=== PATIENT | female | born 1960 | race Hispanic/Latino ===

== ENCOUNTER 2017-03-02 12:30 | Emergency (ER) | payer SELFPAY ==
[2017-03-02] MEDS ORDERED: DECADRON IV ONE (15:42)
[2017-03-02] MEDS ORDERED: NACL 0.9% 1000 ML 1,000 ML IV ONE (15:42)
--- NOTE | 2017-03-02 15:42 | Emergency Department Report ---
ED ENT HPI - General Chief complaint: Sore Throat Stated complaint: ABSCESS ON TONSILS Time Seen by Provider: 03/02/17 15:33 Source: patient Mode of arrival: Ambulatory Limitations: No Limitations - History of Present Illness Initial comments: 56-year-old female past medical history nephrectomy, kidney stones sent in from urgent care for complaint of possible peritonsillar abscess. On exam patient is awake alert and oriented 3 not in acute distress speaking in full sentences no trismus no drooling on exam. No audible wheezing or stridor. States she has developed sore throat for approximately 3 days. States she went to urgent care and was told she may have a peritonsillar abscess and was referred to the emergency room. Patient states that she had a rapid strep swab done in urgent care which was negative. Patient states she has had some body aches denies fevers or chills. States he is able to swallow liquids without difficulty but solids are painful. Denies any shortness of breath MD complaint: sore throat Onset/Timin -: days(s) Location: throat Severity: moderate Severity scale (0 -10): 6 Quality: aching Consistency: constant Worsens with: swallowing, eating Associated Symptoms: fever - Related Data Previous Rx's Medication Instructions Recorded Last Taken Type Benzocaine/Menthol [Cepacol Sore 1 each MM Q4H PRN #1 box 03/02/17 Unknown Rx Throat Lozenge] Clindamycin [Clindamycin CAP] 300 mg PO Q6H #28 capsule 03/02/17 Unknown Rx Ibuprofen [Motrin] 600 mg PO Q8H PRN #25 tablet 03/02/17 Unknown Rx Allergies Allergy/AdvReac Type Severity Reaction Status Date / Time acetaminophen [From Vicodin] Allergy Nausea Verified 03/02/17 12:36 ciprofloxacin [From Cipro] Allergy Rash Verified 03/02/17 12:36 ciprofloxacin HCl Allergy Rash Verified 03/02/17 12:36 [From Cipro] hydrocodone bitartrate Allergy Nausea Verified 03/02/17 12:36 [From Vicodin] ED Dental HPI - General Chief complaint: Sore Throat Stated complaint: ABSCESS ON TONSILS Time Seen by Provider: 03/02/17 15:33 Source: patient Mode of arrival: Ambulatory Limitations: No Limitations - Related Data Previous Rx's Medication Instructions Recorded Last Taken Type Benzocaine/Menthol [Cepacol Sore 1 each MM Q4H PRN #1 box 03/02/17 Unknown Rx Throat Lozenge] Clindamycin [Clindamycin CAP] 300 mg PO Q6H #28 capsule 03/02/17 Unknown Rx Ibuprofen [Motrin] 600 mg PO Q8H PRN #25 tablet 03/02/17 Unknown Rx Allergies Allergy/AdvReac Type Severity Reaction Status Date / Time acetaminophen [From Vicodin] Allergy Nausea Verified 03/02/17 12:36 ciprofloxacin [From Cipro] Allergy Rash Verified 03/02/17 12:36 ciprofloxacin HCl Allergy Rash Verified 03/02/17 12:36 [From Cipro] hydrocodone bitartrate Allergy Nausea Verified 03/02/17 12:36 [From Vicodin] ED Review of Systems ROS: Stated complaint: ABSCESS ON TONSILS Other details as noted in HPI Constitutional: malaise. denies: chills, fever Eyes: denies: eye pain, eye discharge, vision change ENT: throat pain. denies: ear pain Respiratory: denies: cough, shortness of breath, wheezing Cardiovascular: denies: chest pain, palpitations Endocrine: no symptoms reported Gastrointestinal: denies: abdominal pain, nausea, diarrhea Genitourinary: denies: urgency, dysuria, discharge Musculoskeletal: denies: back pain, joint swelling, arthralgia Skin: denies: rash, lesions Neurological: denies: headache, weakness, paresthesias Psychiatric: denies: anxiety, depression Hematological/Lymphatic: denies: easy bleeding, easy bruising ED Past Medical Hx - Past Medical History Previous Medical History?: Yes Hx Kidney Stones: Yes Additional medical history: Renal stones - Surgical History Past Surgical History?: Yes Additional Surgical History: Right nephrectomy - Social History Smoking Status: Never Smoker Substance Use Type: Alcohol, Prescribed - Medications Home Medications: Home Medications Medication Instructions Recorded Confirmed Last Taken Type Benzocaine/Menthol [Cepacol Sore 1 each MM Q4H PRN #1 box 03/02/17 Unknown Rx Throat Lozenge] Clindamycin [Clindamycin CAP] 300 mg PO Q6H #28 capsule 03/02/17 Unknown Rx Ibuprofen [Motrin] 600 mg PO Q8H PRN #25 tablet 03/02/17 Unknown Rx ED Physical Exam - General Limitations: No Limitations General appearance: alert, in no apparent distress - Head Head exam: Present: atraumatic, normocephalic - Eye Eye exam: Present: normal appearance, PERRL, EOMI - ENT ENT exam: Present: mucous membranes moist - Expanded ENT Exam Expanded Throat exam: Positive: tonsillar erythema, tonsillomegaly, tonsillar exudate ( there are tonsillar exudates worse in the left than the right uvula is midline and oropharynx is still open and patent) - Neck Neck exam: Present: normal inspection, full ROM, lymphadenopathy (there is cervical anterior lymphadenopathy worse on left and right) - Respiratory Respiratory exam: Present: normal lung sounds bilaterally. Absent: respiratory distress - Cardiovascular Cardiovascular Exam: Present: regular rate, normal rhythm. Absent: systolic murmur, diastolic murmur, rubs, gallop - GI/Abdominal GI/Abdominal exam: Present: soft, normal bowel sounds - Extremities Exam Extremities exam: Present: normal inspection, full ROM - Back Exam Back exam: Present: normal inspection - Neurological Exam Neurological exam: Present: alert, oriented X3 - Psychiatric Psychiatric exam: Present: normal affect, normal mood - Skin Skin exam: Present: warm, dry, intact, normal color. Absent: rash ED Course Vital Signs 03/02/17 03/02/17 12:37 17:57 Temperature 99.6 F 98.3 F Pulse Rate 94 H 88 Respiratory 18 18 Rate Blood Pressure 124/78 Blood Pressure 112/68 [Left] O2 Sat by Pulse 100 99 Oximetry ED Medical Decision Making - Lab Data Result diagrams: 03/02/17 15:44 03/02/17 15:44 - Medical Decision Making A/P: Tonsillitis, possible early peritonsillar abscess 1-Motrin when necessary, course of clindamycin 2-I discussed case with Dr. Smith will also examined patient. Dr. Smith and I presented the patient with the option of doing a CT now to rule out peritonsillar abscess as it is unclear if there is a fully formed abscess just on physical exam. Patient also presented with option of taking antibiotics and anti-inflammatories while performing watchful waiting to see if symptoms improve. Patient elected to try antibiotics and anti-inflammatories and to return to the ED if symptoms worsen 3-I advised patient to return to the ED if symptoms worsen. 4- I advised patient that it is important to follow up with ENT, patient provided with ENT referral information and I advised her to call to make appointments as soon as possible. Critical care attestation.: If time is entered above; I have spent that time in minutes in the direct care of this critically ill patient, excluding procedure time. ED Disposition Clinical Impression: Tonsillitis with exudate Disposition: TO HOME OR SELFCARE Is pt being admited?: No Does the pt Need Aspirin: No Condition: Stable Instructions: Peritonsillar Abscess (ED), Tonsillitis (ED) Additional Instructions: Patient advised to return to the ED within 48-72 hours if symptoms worsen if she experiences drooling trismus difficulty speaking or difficulty tolerating fluids. Patient advised to follow up with ENT Prescriptions: Benzocaine/Menthol [Cepacol Sore Throat Lozenge] 1 each MM Q4H PRN #1 box PRN Reason: Sore Throat Clindamycin [Clindamycin CAP] 300 mg PO Q6H #28 capsule Ibuprofen [Motrin] 600 mg PO Q8H PRN #25 tablet PRN Reason: Pain Referrals: [facility] [Provider Group] - 3[facility] - 3-5 Days [facility] [Outside] - 3-5 Days EMILY NAZARIO MD [Staff Physician] - 3-5 Days Forms: Work/School Release Form(ED)
[2017-03-02 16:01] LABS: Basophils % (Auto) 0.3 % (0.0-1.8); Eosinophils % (Auto) 0.3 % (0.0-4.3); Hemoglobin 14.1 gm/dl (10.1-14.3); Mean Corpuscular HGB Conc 33 % (30-34); Mean Corpuscular Hemoglobin 29 pg (28-32); Mean Corpuscular Volume 88 fl (79-97); Platelet Count 236 K/mm3 (140-440); Red Blood Count 4.88 M/mm3 (3.65-5.03)
[2017-03-02 16:08] LABS: Blood Urea Nitrogen 10 mg/dL (7-17); Calcium 8.7 mg/dL (8.4-10.2); Carbon Dioxide 32 mmol/L (22-30); Glucose 96 mg/dL (65-100)
[2017-03-02 16:09] LABS: Anion Gap 11 mmol/L; Chloride 99.2 mmol/L (98-107); Potassium 4.1 mmol/L (3.6-5.0); Sodium 138 mmol/L (137-145)
[2017-03-02] MEDS ORDERED: CLEOCIN 600 MG/50 mL 600 MG/50 ML BAG IV ONE (16:21)
[2017-03-02] MEDS ORDERED: MOTRIN PO ONE (16:21)
[2017-03-02 17:58] VITALS: BP 112/68
--- NOTE | 2017-03-02 23:39 | Emergency Department Report ---
Entered by DEVYN PRADO, acting as scribe for ALTAF KURTZ PA. ED General Adult HPI - General Chief complaint: Sore Throat Stated complaint: ABSCESS ON TONSILS Time Seen by Provider: 03/02/17 15:33 Source: patient Mode of arrival: Ambulatory Limitations: No Limitations - History of Present Illness Initial comments: 56 year old female with PMHx of renal stones presents to the ED c/o sore throat pain for 5 days. Patient states she went to [facility] and diagnosed her with abscess in her tonsils. She notes the [facility] performed a strep test and results were negative. Patient rates pain to be 5/10. Patient reports fever, body ache, and stiff neck but denies drooling, chills, headache, cough, numbness, and tingling. Patient speaking in full sentences there is no audible wheezing or stridor on exam. PSHx of Right nephrectomy. NKDA. DE [place] [facility] Complaint: Sore throat Onset/Timin -: days(s) Location: mouth (throat ) Radiation: non-radiation Severity scale (0 -10): 4 Quality: burning Consistency: constant Improves with: none Worsens with: none Associated Symptoms: denies other symptoms, fever/chills (fever). denies: confusion, chest pain, cough, diaphoresis, headaches, loss of appetite, malaise , nausea/vomiting, rash Treatments Prior to Arrival: none - Related Data Previous Rx's Medication Instructions Recorded Last Taken Type Benzocaine/Menthol [Cepacol Sore 1 each MM Q4H PRN #1 box 03/02/17 Unknown Rx Throat Lozenge] Clindamycin [Clindamycin CAP] 300 mg PO Q6H #28 capsule 03/02/17 Unknown Rx Ibuprofen [Motrin] 600 mg PO Q8H PRN #25 tablet 03/02/17 Unknown Rx Allergies Allergy/AdvReac Type Severity Reaction Status Date / Time acetaminophen [From Vicodin] Allergy Nausea Verified 03/02/17 12:36 ciprofloxacin [From Cipro] Allergy Rash Verified 03/02/17 12:36 ciprofloxacin HCl Allergy Rash Verified 03/02/17 12:36 [From Cipro] hydrocodone bitartrate Allergy Nausea Verified 03/02/17 12:36 [From Vicodin] ED Review of Systems Comment: All other systems reviewed and negative Constitutional: denies: chills, fever Eyes: denies: eye pain, eye discharge, vision change ENT: throat pain. denies: ear pain Respiratory: denies: cough, shortness of breath, wheezing Cardiovascular: denies: chest pain, palpitations Gastrointestinal: denies: abdominal pain, nausea, vomiting, diarrhea Genitourinary: denies: urgency, dysuria, discharge Musculoskeletal: denies: back pain, joint swelling, arthralgia Skin: denies: rash, lesions Neurological: denies: headache, weakness, paresthesias ED Past Medical Hx - Past Medical History Previous Medical History?: Yes Hx Kidney Stones: Yes Additional medical history: Renal stones - Surgical History Past Surgical History?: Yes Additional Surgical History: Right nephrectomy - Social History Smoking Status: Never Smoker Substance Use Type: Alcohol, Prescribed - Medications Home Medications: Home Medications Medication Instructions Recorded Confirmed Last Taken Type Benzocaine/Menthol [Cepacol Sore 1 each MM Q4H PRN #1 box 03/02/17 Unknown Rx Throat Lozenge] Clindamycin [Clindamycin CAP] 300 mg PO Q6H #28 capsule 03/02/17 Unknown Rx Ibuprofen [Motrin] 600 mg PO Q8H PRN #25 tablet 03/02/17 Unknown Rx ED Physical Exam - General Limitations: No Limitations General appearance: alert, in no apparent distress - Head Head exam: Present: atraumatic, normocephalic - Eye Eye exam: Present: normal appearance, PERRL, EOMI Pupils: Present: normal accommodation. Absent: irregular - ENT ENT exam: Present: mucous membranes moist - Expanded ENT Exam Expanded Mouth exam: Present: normal external inspection Throat exam: Positive: tonsillar erythema, tonsillomegaly, tonsillar exudate, other (uvula is midline, there is no involvement of soft palate no cellulitis of soft palate) - Neck Neck exam: Present: normal inspection, full ROM - Respiratory Respiratory exam: Present: normal lung sounds bilaterally. Absent: respiratory distress, wheezes, rales, rhonchi, stridor - Cardiovascular Cardiovascular Exam: Present: regular rate, normal rhythm. Absent: systolic murmur, diastolic murmur, rubs, gallop - GI/Abdominal GI/Abdominal exam: Present: soft, normal bowel sounds - Extremities Exam Extremities exam: Present: normal inspection, full ROM. Absent: tenderness - Back Exam Back exam: Present: normal inspection, full ROM. Absent: tenderness - Neurological Exam Neurological exam: Present: alert, oriented X3, CN II-XII intact, normal gait - Psychiatric Psychiatric exam: Present: normal affect, normal mood - Skin Skin exam: Present: warm, dry, intact, normal color. Absent: rash ED Course Vital Signs 03/02/17 03/02/17 12:37 17:57 Temperature 99.6 F 98.3 F Pulse Rate 94 H 88 Respiratory 18 18 Rate Blood Pressure 124/78 Blood Pressure 112/68 [Left] O2 Sat by Pulse 100 99 Oximetry ED Medical Decision Making - Lab Data Result diagrams: 03/02/17 15:44 03/02/17 15:44 - Medical Decision Making A/P: Tonsillitis, possible early peritonsillar abscess 1-I discussed case with Dr. Smith who also examined the patient. Uvula is midline on exam and oropharynx still patent. As patient has had nephrectomy I consulted with Dr. Smith whether or not it is worth doing a CT at this time. We presented the patient with the option of using antibiotics and watchful waiting with follow-up with ENT or performing CT now. Patient elected to try antibiotics and return if symptoms worsen Patient is able to tolerate by mouth fluids. 2-strep swab sent, initially negative. Patient given IV dose of Decadron and IV clindamycin starting dose. 3-Motrin when necessary, throat lozenges when necessary 4- I specifically advised the patient to return to the ED if she experiences drooling trismus difficulty breathing persistent nausea vomiting or severe fevers and chills above 100.4 consistently despite Motrin or Tylenol use. Patient is able to tolerate by mouth fluid and states that her pain is significantly improved since I first spoke with her. ED Disposition Clinical Impression: Tonsillitis with exudate Disposition: DC-01 TO HOME OR SELFCARE Is pt being admited?: No Does the pt Need Aspirin: No Condition: Stable Instructions: Peritonsillar Abscess (ED), Tonsillitis (ED) Additional Instructions: Patient advised to return to the ED within 48-72 hours if symptoms worsen if she experiences drooling trismus difficulty speaking or difficulty tolerating fluids. Patient advised to follow up with ENT Prescriptions: Benzocaine/Menthol [Cepacol Sore Throat Lozenge] 1 each MM Q4H PRN #1 box PRN Reason: Sore Throat Clindamycin [Clindamycin CAP] 300 mg PO Q6H #28 capsule Ibuprofen [Motrin] 600 mg PO Q8H PRN #25 tablet PRN Reason: Pain Referrals: EMILY NAZARIO MD [Staff Physician] - 3-5 Days [facility] [Provider Group] - 3-5 Days [facility] [Provider Group] - 3-5 Days [facility] [Outside] - 3-5 Days Forms: Work/School Release Form(ED) This documentation as recorded by the JOHAN bob PEARL,accurately reflects the service I personally performed and the decisions made by ,ALTAF KURTZ, PA.
== END 2017-03-02 17:57 | disposition home or self-care (01) ==
LOC: ED 12:30
DX: J03.90 Acute tonsillitis, unspecified (principal)
CPT/HCPCS: 36415; 80048; 82550; 84703; 85025; 87116; 87430; 96361; 96365; 96375; 99283; J1100; J7030